=== PATIENT | male | born 1960 | race Hispanic/Latino ===

== ENCOUNTER 2020-04-15 07:48 | Day surgery (SDC) | payer OTHER ==
[2020-04-12 11:24] LABS: CREATININE 0.9 mg/dL (0.5-1.5)
[2020-04-14 12:46] VITALS: BP 130/77
[2020-04-15] VITALS (17 sets, daily range): BP systolic 95–134; BP diastolic 53–79
[~2020-04-15] VITALS: Ht 170.2 cm; Wt 99.8 kg
[~2020-04-15 07:48] MED LIST: CITA-107 PO; EMPA25TA PO; METF-444 PO
[2020-04-15] MEDS ORDERED: CEFAZOLIN SODIUM 1 GM VIAL IVP ONE (08:00)
[2020-04-15] MEDS ORDERED: SODIUM CHLORIDE 0.9% 1000ML 1,000 ML IV ONE (08:22)
[2020-04-15] MEDS ORDERED: BUPIVACAINE/PF 0.25% 30ML VIAL IJ ONE (09:00)
[2020-04-15] MEDS ORDERED: LIDOCAINE HCL 1% 20 ML VIAL ONE (09:00)
[2020-04-15] MEDS ORDERED: LIDOCAINE PF 2% 5ML ABBOJECT ONE (09:04)
[2020-04-15] MEDS ORDERED: SUCCINYLCHOLINE CHLORIDE 20 MG/ML 10 ML VIAL ONE (09:04)
[2020-04-15] MEDS ORDERED: ONDANSETRON HCL 4 MG/2 ML VIAL ONE (09:04)
[2020-04-15] MEDS ORDERED: MIDAZOLAM HCL 1 MG/ML 2ML VIAL ONE (09:04)
[2020-04-15] MEDS ORDERED: GLYCOPYRROLATE 1 MG/5 ML SYRINGE ONE (09:04)
[2020-04-15] MEDS ORDERED: FENTANYL CITRATE PF 50 MCG/1 ML 2ML VIAL ONE ×3 (09:05→10:22)
[2020-04-15] MEDS ORDERED: NEOSTIGMINE 5MG/5ML SYR IV ONE (09:05)
[2020-04-15] MEDS ORDERED: MEPERIDINE-PF 25 MG/ML SYG ONE (09:10)
[2020-04-15] MEDS ORDERED: PHENYLEPHRINE HCL 10 MG/ML 1ML VIAL IV ONE (09:34)
[2020-04-15] MEDS ORDERED: BACITRACIN 28.4 GM OINT TP ONE (09:36)
--- NOTE | 2020-04-15 12:30 | NUR ---
DISCHARGED HOME WITH . GIVEN PRINTED AND VERBAL DISCHARGE INSTRUCTIONS. VERBALIZE UNDERSTANDING. IV CATH REMOVED. ICE PACKS PROVIDED. RX'S GIVEN. NO ACUTE DISTRESS NOTED. NO BLEEDING FROM PENIS. GAUZE CLEAN DRY AND INTACT
== END 2020-04-15 12:30 | disposition home or self-care (01) ==
LOC: DAH 07:48
PROVIDERS: ATTEND Urology
DX: N47.1 Phimosis (principal); K21.9 Gastro-esophageal reflux disease without esophagitis; E11.9 Type 2 diabetes mellitus without complications; E66.01 Morbid (severe) obesity due to excess calories; Z90.49 Acquired absence of other specified parts of digestive tract; Z98.890 Other specified postprocedural states; Z79.899 Other long term (current) drug therapy; Z20.828 Contact with and (suspected) exposure to other viral communicable diseases
CPT/HCPCS: 36415; 54161; 80048; 82948 ×2; A4215; A4216; A4221; A4222; A4223 ×3; A4606; A4663; A4930 ×2; A6260; C9803; J0330; J0690; J2001; J2175; J2250; J2370; J2405; J2710; J3010 ×3; J3490 ×2; J7030; U0003